=== PATIENT | male | born 1975 | race Caucasian/White ===

== ENCOUNTER 2023-09-17 15:30 | Outpatient (OUT) | payer OTHER, SELFPAY | END 2023-09-17 15:31 | disposition home or self-care (01) | LOC: SLEEP 09-18 07:10 | PROVIDERS: PCP Internal Medicine; Visit Provider Internal Medicine | DX: G47.33 Obstructive sleep apnea (adult) (pediatric) (principal) | CPT/HCPCS: 95806 ==